=== PATIENT | male | born 1960 | race African-American/Black ===

== ENCOUNTER 2017-12-19 20:57 | Inpatient (IN) | payer MEDICAID ==
[~2017-12-19] VITALS: Ht 167.6 cm; Wt 78.9 kg
[2017-12-19] MEDS ORDERED: RISP1 PO (21:22)
[2017-12-19] MEDS ORDERED: LISI-622 PO (21:22)
[2017-12-19] MEDS ORDERED: DIVA250T25 PO (21:23)
[2017-12-19 21:35] LABS: BASOPHILS % (AUTO) 0.4 % (0.0-2.0); EOSINOPHILS % (AUTO) 0.3 % (1.0-6.0); HEMATOCRIT 44.1 % (41-53); HEMOGLOBIN 15.3 g/dL (13.5-17.5); LYMPHOCYTES # (AUTO) 1.7 K/uL (1.0-4.8); LYMPHOCYTES % (AUTO) 17.7 % (22.0-44.0); MEAN CORPUSCULAR HEMOGLOBIN 31.3 pg (26.0-34.0); MEAN CORPUSCULAR HGB CONC 34.8 G/dL (31.0-37.0); MEAN CORPUSCULAR VOLUME 90 fL (80-100); MONOCYTES # (AUTO) 1.5 K/uL (0.1-1.0); MONOCYTES % (AUTO) 15.4 % (2.0-9.0); NEUTROPHILS # (AUTO) 6.4 K/uL (1.8-7.7); NEUTROPHILS % (AUTO) 66.2 % (40.0-70.0); PLATELET COUNT (AUTO) 251 K/uL (150-450); RED BLOOD CELL COUNT(AUTO) 4.89 MIL/uL (4.50-5.90); RED CELL DISTRIBUTION WIDTH 12.5 % (11.5-14.5)
[2017-12-19 21:38] LABS: ANION GAP 7 mmol/L (8-16); CARBON DIOXIDE 29 mmol/L (22-29); CHLORIDE 100 mmol/L (98-107); GLOMERULAR FILTR. RATE CALC > 60 mL/min (>60); GLUCOSE,RANDOM 113 mg/dL (70-110); POTASSIUM 3.8 mmol/L (3.5-5.1); SODIUM SERUM 136 mmol/L (136-145); UREA NITROGEN, BLOOD 14 mg/dL (7-18)
[2017-12-19 21:43] LABS: ALANINE AMINOTRANSFERASE 27 U/L (12-78); ALBUMIN 4.2 g/dL (3.4-5.0); ALKALINE PHOSPHATASE 63 U/L (46-116); ASPARTATE AMINOTRANSFERASE 46 U/L (15-37); BILIRUBIN,TOTAL 0.7 mg/dL (0.1-1.0); TOTAL PROTEIN, SERUM 8.7 g/dL (6.4-8.2); VALPROIC ACID 17 mcg/mL (50-100)
[2017-12-19] MEDS ORDERED: RisperiDONE 1 MG TABLET PO ONE (22:15)
[2017-12-19] MEDS ORDERED: HALOPERIDOL 5 MG TABLET PO PRN (22:30)
[2017-12-19] MEDS ORDERED: ZOLPIDEM TARTRATE 10 MG TABLET PO PRN (22:30)
[2017-12-19] MEDS ORDERED: LORazepam 2 MG TABLET PO PRN (22:30)
[2017-12-20 01:40] VITALS: BP 138/89
[2017-12-20] MEDS ORDERED: PNEUMOCOCCAL VACCINE POLYVALENT 0.5 ML VIAL [PPSV23] IM ONE (03:15)
[2017-12-20 08:51] VITALS: BP 119/90
[2017-12-20] MEDS ORDERED: DIVALPROEX SODIUM 500 MG ER TABLET PO SCH (09:45)
[2017-12-20] MEDS: RisperiDONE 2 MG TABLET PO SCH ×2 (10:30→18:26)
[2017-12-20] MEDS ORDERED: HALO100V4 IM (13:24)
[2017-12-20] MEDS ORDERED: RISP2 PO (13:24)
[2017-12-20] MEDS: TRIHEXYPHENIDYL HCL 5 MG TABLET PO SCH ×2 (14:09→18:27)
[2017-12-20 16:57] VITALS: BP 137/85
[2017-12-20] MEDS: DIVALPROEX SODIUM 250 MG ER TABLET PO SCH (18:27)
[2017-12-20] MEDS: ATORVASTATIN CALCIUM 10 MG TABLET PO SCH (20:58)
[2017-12-21 06:41] LABS: CHOL/HDL RATIO 2.4 (4.2-7.3); THYROID STIMULATING HORMONE 5.6 uIU/mL (0.36-3.74)
[2017-12-21 08:00] VITALS: BP 115/84
[2017-12-21] MEDS: TRIHEXYPHENIDYL HCL 5 MG TABLET PO SCH ×2 (08:13→18:04)
[2017-12-21] MEDS: DIVALPROEX SODIUM 250 MG ER TABLET PO SCH ×2 (08:13→18:04)
[2017-12-21] MEDS: ASPIRIN 81 MG EC TABLET PO SCH (08:17)
[2017-12-21] MEDS: RisperiDONE 2 MG TABLET PO SCH ×2 (08:17→18:04)
[2017-12-21] MEDS: LISINOPRIL 5 MG TABLET PO SCH (08:18)
[2017-12-21] MEDS: HALOPERIDOL 5 MG TABLET PO SCH ×2 (09:44→18:04)
[2017-12-21 16:48] VITALS: BP 127/80
[2017-12-21] MEDS: ATORVASTATIN CALCIUM 10 MG TABLET PO SCH (21:19)
[2017-12-22] MEDS: TRIHEXYPHENIDYL HCL 5 MG TABLET PO SCH (08:24)
[2017-12-22] MEDS: RisperiDONE 2 MG TABLET PO SCH (08:25)
[2017-12-22] MEDS: HALOPERIDOL 5 MG TABLET PO SCH (08:25)
[2017-12-22] MEDS: LISINOPRIL 5 MG TABLET PO SCH (08:25)
[2017-12-22] MEDS: ASPIRIN 81 MG EC TABLET PO SCH (08:25)
[2017-12-22] MEDS: DIVALPROEX SODIUM 250 MG ER TABLET PO SCH (08:25)
[2017-12-22] MEDS ORDERED: HALO5 PO (09:05)
[2017-12-22] MEDS ORDERED: TRIH5TAB2 PO (09:05)
[2017-12-22] MEDS ORDERED: ASPI-1182 PO (09:05)
[2017-12-22] MEDS ORDERED: ATOR10TA84 PO (09:05)
[2017-12-22 09:47] VITALS: BP 110/67
== END 2017-12-22 10:15 | DRG 750 ==
LOC: EMS 20:58 → 3EC 12-20 00:14
PROVIDERS: ADMIT Psychiatry & Neurology Child & Adolescent Psychiatry; ATTEND Psychiatry & Neurology Child & Adolescent Psychiatry
DX: F20.0 Paranoid schizophrenia (principal); Z91.19 Patient's noncompliance with other medical treatment and regimen; I10 Essential (primary) hypertension; E78.5 Hyperlipidemia, unspecified; R07.9 Chest pain, unspecified; W50.1XXA Accidental kick by another person, initial encounter; F41.9 Anxiety disorder, unspecified; F31.9 Bipolar disorder, unspecified; Z79.899 Other long term (current) drug therapy; Y93.89 Activity, other specified; Y92.89 Other specified places as the place of occurrence of the external cause; Y99.8 Other external cause status; Z28.21 Immunization not carried out because of patient refusal
CPT/HCPCS: 84439; 84443; 99285; G0480